=== PATIENT | female | born 1940 | race Caucasian/White ===

== ENCOUNTER 2017-10-30 14:34 | Outpatient (CLI) | payer MEDICARE, BC ==
[~2017-10-30 14:34] MED LIST: ALEN70TA13 PO; CHOL10002 PO; IBUPROFEN PO; MAGN400C PO; PARO40TA81 PO; ROPI1TAB17 PO; TRAMADOL/APAP PO; TRINTELLIX PO; [UNRECOGNIZED DRUG - OTHER] PO
[2017-10-30 14:36] VITALS: BP 141/77
== END 2017-10-30 15:30 | disposition home or self-care (01) ==
LOC: ORTHO 14:34
PROVIDERS: ATTEND Nurse Practitioner Family
DX: S49.92XD Unspecified injury of left shoulder and upper arm, subsequent encounter (principal); S52.502D Unspecified fracture of the lower end of left radius, subsequent encounter for closed fracture with routine healing; F32.9 Major depressive disorder, single episode, unspecified; K21.9 Gastro-esophageal reflux disease without esophagitis; I49.9 Cardiac arrhythmia, unspecified; M25.832 Other specified joint disorders, left wrist; X58.XXXD Exposure to other specified factors, subsequent encounter
CPT/HCPCS: 73110

== ENCOUNTER 2017-11-21 15:09 | Outpatient (CLI) | payer MEDICARE, BC ==
[2017-11-21 15:07] VITALS: BP 137/84
== END 2017-11-21 15:45 | disposition home or self-care (01) ==
LOC: ORTHO 15:09
PROVIDERS: ATTEND Nurse Practitioner Family
DX: S52.502D Unspecified fracture of the lower end of left radius, subsequent encounter for closed fracture with routine healing (principal); S49.92XD Unspecified injury of left shoulder and upper arm, subsequent encounter; M19.032 Primary osteoarthritis, left wrist; M85.88 Other specified disorders of bone density and structure, other site; K21.9 Gastro-esophageal reflux disease without esophagitis; F32.9 Major depressive disorder, single episode, unspecified; Z88.5 Allergy status to narcotic agent; W01.0XXD Fall on same level from slipping, tripping and stumbling without subsequent striking against object, subsequent encounter
CPT/HCPCS: 73110

== ENCOUNTER 2017-11-29 15:16 | Outpatient (CLI) | payer MEDICARE, BC | END 2017-11-29 23:59 | disposition home or self-care (01) | LOC: RAD 15:16 | PROVIDERS: ATTEND Nurse Practitioner Family | DX: S49.92XA Unspecified injury of left shoulder and upper arm, initial encounter (principal); M19.012 Primary osteoarthritis, left shoulder; M25.412 Effusion, left shoulder; X58.XXXA Exposure to other specified factors, initial encounter; Y93.89 Activity, other specified; Y92.89 Other specified places as the place of occurrence of the external cause; Y99.8 Other external cause status | CPT/HCPCS: 73221 ==

== ENCOUNTER 2017-12-05 14:27 | Outpatient (CLI) | payer MEDICARE, BC ==
[2017-12-05 14:33] VITALS: BP 155/90
== END 2017-12-05 15:00 | disposition home or self-care (01) ==
LOC: ORTHO 14:27
PROVIDERS: ATTEND Nurse Practitioner Family
DX: S46.812D Strain of other muscles, fascia and tendons at shoulder and upper arm level, left arm, subsequent encounter (principal); W18.39XA Other fall on same level, initial encounter; Y93.89 Activity, other specified; Y92.89 Other specified places as the place of occurrence of the external cause
CPT/HCPCS: 99213

== ENCOUNTER 2022-04-07 01:55 | Emergency (ER) | payer BC, MEDICARE ==
[~2022-04-07] VITALS: Ht 165.1 cm; Wt 68.8 kg
[~2022-04-07 01:55] MED LIST changes: -ALEN70TA13 PO; +ALEN70TA80 PO
--- NOTE | 2022-04-07 02:17 | NUR ---
SPOKE TO DR PEÑA CONCERNING AMOUNT OF MORPHINE PT TOOK PRIOR TO ARRIVAL. I HAVE ROOMED PT IN BED 10. PT ON PATIENT REGISTRATION CLERK. PRIMARY RN AWARE OF PT.
[2022-04-07 04:55] VITALS: BP 155/64
== END 2022-04-07 04:59 | disposition home or self-care (01) ==
LOC: ER 01:55
DX: J02.9 Acute pharyngitis, unspecified (principal); R05.9 Cough, unspecified; R50.9 Fever, unspecified; K21.9 Gastro-esophageal reflux disease without esophagitis; M19.90 Unspecified osteoarthritis, unspecified site; Z90.710 Acquired absence of both cervix and uterus; Z98.890 Other specified postprocedural states; Z72.89 Other problems related to lifestyle; Z88.5 Allergy status to narcotic agent; Z88.8 Allergy status to other drugs, medicaments and biological substances; Z79.899 Other long term (current) drug therapy
CPT/HCPCS: 87081; 87502; 87503; 87880; 99283